=== PATIENT | female | born 1960 | race Caucasian/White ===

== ENCOUNTER 2018-06-28 07:01 | Day surgery (SDC) | payer OTHER ==
[~2018-06-28 07:01] MED LIST: LIDOCAINE 2% (SDV) 5 ML INJ
[2018-06-28] MEDS ORDERED: PROPOFOL 60 ML (09:04)
== END 2018-06-28 15:18 | disposition home or self-care (01) ==
LOC: GIL 07:01
DX: Z12.11 Encounter for screening for malignant neoplasm of colon (principal); K64.8 Other hemorrhoids; D12.6 Benign neoplasm of colon, unspecified
CPT/HCPCS: 45380; 88305